=== PATIENT | male | born 1955 | race Caucasian/White ===

== ENCOUNTER 2016-12-29 19:26 | Emergency (ER) | payer OTHER ==
--- NOTE | ~2016-12-29 | CT114 ---
[facility] A Service of [facility] RADIOLOGY TEXT RESULTS PATIENT: SHERIDAN DURÁN LOCATION: [facility] : 59 UNIT #: [id number] AGE: [address]: Wood Bejarano MD SEX: M ORDER DR: [id number] [facility] [address] [place], [place] [address] [id number] E MR#: [id number] Acc #: [id number] NAME: SHERIDAN DURÁN. : 1955 SEX: M STUDY DATE/TIME: 12/29/2016 19:11 UNIT: [facility] ROOM: STUDY DESCRIPTION: CT Soft Tissue Neck W Cont Attending Physician: Wood Bejarano M.D. Ordering Physician: Tereso Garcia M.D. Primary Care Physician: Vikram Barba MEDICAL IMAGING REPORT This report is preliminary unless electronic signature is present EXAM CT scan of the neck with contrast HISTORY Numbness left side of throat and face since this morning. TECHNIQUE Axial 3 mm images were obtained through the neck with IV contrast. The patient was given 100 mL of Isovue-370. Sagittal and coronal reconstructions were generated. This CT exam was performed with one or more of the following radiation dose reduction techniques: automatic exposure control, adjustment of mA and/or kV according to patient size, and iterative reconstruction. FINDINGS The lung apices are clear. The thyroid gland is normal. The submandibular glands and parotid glands are normal. There are no masses. The bones show degenerative changes in the lower cervical spine. IMPRESSION There is some mild degenerative change in the lower cervical spine, otherwise, the study is normal. Dictated by... Laci Salazar M.D. THIS IS AN ELECTRONICALLY VERIFIED REPORT Laci Salazar M.D. at 12/30/2016 4:32 PM FEL/clair TD: 12/30/2016 15:04 [facility] A Service of [facility] RADIOLOGY TEXT RESULTS PATIENT: SHERIDAN DURÁN LOCATION: [facility] : 59 UNIT #: [id number] AGE: [address]: Wood Bejarano MD SEX: M ORDER DR: JOB #: [id number] MEDICAL IMAGING REPORT COPY
--- NOTE | ~2016-12-29 | CT71 ---
[facility] A Service of [facility] RADIOLOGY TEXT RESULTS PATIENT: SHERIDAN DURÁN LOCATION: [facility] : 59 UNIT #: [id number] AGE: [address]: Wood Bejarano MD SEX: M ORDER DR: [id number] [facility] [address] [place], [place] [address] [id number] E MR#: [id number] Acc #: [id number] NAME: SHERIDAN DURÁN. : 1955 SEX: M STUDY DATE/TIME: 12/29/2016 21:07 UNIT: [facility] ROOM: STUDY DESCRIPTION: CT Head Wo Contrast Attending Physician: Wood Bejarano M.D. Ordering Physician: Ed Kevin Garcia M.D. Primary Care Physician: Vikram Barba MEDICAL IMAGING REPORT This report is preliminary unless electronic signature is present EXAM CT scan of the head without contrast. INDICATIONS Numbness in left side of face and neck since this morning. TECHNIQUE This CT exam was performed with one or more of the following radiation dose reduction techniques: automatic exposure control, adjustment of mA and/or kV according to patient size, and iterative reconstruction. FINDINGS Axial noncontrast images were obtained from the skull base to the vertex. Ventricular size and configuration are normal. There is no evidence of acute infarct or hemorrhage. There are no extra-axial fluid collections. No mass lesion or mass effect is seen. There are no skull fractures. IMPRESSION Normal noncontrast head CT. Dictated by... Laci Salazar M.D. THIS IS AN ELECTRONICALLY VERIFIED REPORT Laci Salazar M.D. at 12/30/2016 4:32 PM FEL/pc TD: 12/30/2016 15:04 JOB #: [id number] MEDICAL IMAGING REPORT [facility] A Service [facility] RADIOLOGY TEXT RESULTS PATIENT: SHERIDAN DURÁN LOCATION: [facility] : 59 UNIT #: [id number] AGE: [address]: Wood Bejarano MD SEX: M ORDER DR: COPY
--- NOTE | ~2016-12-29 | EKG ---
PATIENT: SHERIDAN DURÁN UNIT #: [id number] Ventricular Rate: 76 BPM Atrial Rate: 76 BPM P-R Interval: 156 ms QRS Duration: 86 ms Q-T Interval: 380 ms QTC Calculation(Bezet): 427 ms P Lewellen: 45 degrees Calculated R Lewellen: 23 degrees Calculated T Lewellen: 30 degrees Diagnosis Line: Sinus rhythm with marked sinus arrhythmia Diagnosis Line: Otherwise normal ECG Diagnosis Line: No previous ECGs available Diagnosis Line: Confirmed by TIFFANIE PAYNE MD ([id number]) on Diagnosis Line: 01/02/2017 3:57:24 PM INTERPRETING MD: ELMER CAIN
[2016-12-29 19:53] LABS: BASOPHIL# 0.1 X10e3 (0-0.3); EOSINOPHIL# 0.2 X10e3 (0-0.7); EOSINOPHIL% 2.4 % (0.0-7.0); HEMATOCRIT 42.8 % (38.0-50.0); HEMOGLOBIN 14.8 gm/dL (13.0-16.0); LYMPHOCYTE# 2.1 X10e3 (1.0-3.5); LYMPHOCYTE% 26.8 % (17.0-45.0); MEAN CELL VOLUME 88.2 FL (83-96); MEAN CORPUSCULAR HEMOGLOBIN 30.4 PG (28-34); MEAN CORPUSCULAR HGB CONC 34.5 g/dL (30-36); MEAN PLATELET VOLUME 7.9 FL (6.5-11.5); MONOCYTE# 0.6 X10e3 (0-1.0); MONOCYTE% 7.9 % (3.0-12.0); NEUTROPHIL# 4.8 X10e3 (1.5-7.1); NEUTROPHIL% 61.9 % (40-75); PLATELET COUNT 255 X10e3 (140-420); RED BLOOD COUNT 4.86 X10e (3.90-5.60); RED CELL DISTRIBUTION WIDTH 13.5 % (11.0-15.5); WHITE BLOOD COUNT 7.8 X10e3 (4.0-10.5)
[2016-12-29 19:58] LABS: DIFF IND NO
[2016-12-29 19:58] LABS: POC - CKMB 6.4 ng/mL (0.0-7.9); POC - TROPONIN <0.05 ng/mL (<=0.05)
[2016-12-29 20:18] LABS: INFLUENZA A NEG (NEG); INFLUENZA B NEG (NEG)
[2016-12-29 20:23] LABS: ALBUMIN SERUM 4.8 g/dL (3.5-5.0); ALKALINE PHOSPHATASE 62 U/L (32-92); ALT (SGPT) 27 U/L (10-40); AST (SGOT) 28 U/L (10-42); BILIRUBIN, DIRECT 0.2 mg/dL (0.0-0.2); BILIRUBIN,INDIRECT 1.4 mg/dL (0.0-0.9); BILIRUBIN,TOTAL 1.6 mg/dL (0.2-2.0); BLOOD UREA NITROGEN 12 mg/dL (9-23); CALCIUM SERUM 9.4 mg/dL (8.4-10.2); CARBON DIOXIDE 27 mmol/L (22-31); CHLORIDE 106 mmol/L (100-111); CREATININE SERUM 1.2 mg/dL (0.6-1.4); GLOM FILT RATE Estimated ABOVE60 mL/min (>60); GLUCOSE FASTING 86 mg/dL (70-110); PROTEIN TOTAL SERUM 7.4 g/dL (6.0-8.3); SODIUM 141 mmol/L (135-145)
[2016-12-29 22:23] LABS: POC - CKMB 6.2 ng/mL (0.0-7.9); POC - TROPONIN <0.05 ng/mL (<=0.05)
== END 2016-12-29 23:38 | disposition home or self-care (01) ==
LOC: CED 19:26
PROVIDERS: Emergency Medicine
DX: R51 Headache (principal); M54.2 Cervicalgia; I10 Essential (primary) hypertension; Z88.8 Allergy status to other drugs, medicaments and biological substances
CPT/HCPCS: 36415; 70450; 70491; 80048; 80076; 82553; 82947; 84484; 85025; 87651; 87804; 93005; 99284; Q9967

== ENCOUNTER 2017-03-01 20:50 | Emergency (ER) | payer OTHER ==
--- NOTE | ~2017-03-01 | CR2 ---
[facility] A Service of [facility] RADIOLOGY TEXT RESULTS PATIENT: SHERIDAN DURÁN LOCATION: [facility] : 59 UNIT #: [id number] AGE: [address]: Pam Perdomo MD SEX: M ORDER DR: [id number] [facility] [address] [place], [place] [address] [id number] E MR#: [id number] Acc #: [id number] NAME: SHERIDAN DURÁN. : 1955 SEX: M STUDY DATE/TIME: 03/01/2017 20:29 UNIT: [facility] ROOM: STUDY DESCRIPTION: CR Abdomen Acute Series Attending Physician: Pam Perdomo M.D. Ordering Physician: Pam Perdomo M.D. Primary Care Physician: Vikram Barba MEDICAL IMAGING REPORT This report is preliminary unless electronic signature is present EXAM Acute abdomen series 3 views, 03/01/2017 HISTORY Abdominal pain, nausea and constipation for 3 days. FINDINGS Single frontal view of the chest taken at the time of the abdominal examination is within normal limits. AP, supine, and upright examination of the abdomen shows a normal gas and fecal pattern distribution throughout large and small bowel without distended loops in either area. There is no indication of extraluminal air, unusual visceromegaly, or soft tissue density mass. The renal definitions are fairly well demarcated and normal in shape and size. No abnormal intra-abdominal calcifications are present. IMPRESSION Normal acute abdomen series. Dictated by... Jenaro Prado M.D. THIS IS AN ELECTRONICALLY VERIFIED REPORT Jenaro Prado M.D. at 03/02/2017 3:39 PM KRT/linsey TD: 03/02/2017 02:41 JOB #: [id number] MEDICAL IMAGING REPORT [facility] A Service of [facility] RADIOLOGY TEXT RESULTS PATIENT: SHERIDAN DURÁN LOCATION: [facility] : 59 UNIT #: [id number] AGE: [address]: Pam Perdomo MD SEX: M ORDER DR: Page 1 of 1 COPY
[2017-03-01 20:12] LABS: BASOPHIL# 0.1 X10e3 (0-0.3); BASOPHIL% 0.8 % (0-2.5); EOSINOPHIL# 0.1 X10e3 (0-0.7); EOSINOPHIL% 0.6 % (0.0-7.0); HEMATOCRIT 43.5 % (38.0-50.0); HEMOGLOBIN 14.6 gm/dL (13.0-16.0); LYMPHOCYTE# 1.2 X10e3 (1.0-3.5); MEAN CELL VOLUME 89.4 FL (83-96); MEAN CORPUSCULAR HEMOGLOBIN 30.1 PG (28-34); MEAN CORPUSCULAR HGB CONC 33.6 g/dL (30-36); MEAN PLATELET VOLUME 7.5 FL (6.5-11.5); MONOCYTE# 0.7 X10e3 (0-1.0); MONOCYTE% 6.6 % (3.0-12.0); NEUTROPHIL# 8.7 X10e3 (1.5-7.1); PLATELET COUNT 362 X10e3 (140-420); RED BLOOD COUNT 4.87 X10e (3.90-5.60); WHITE BLOOD COUNT 10.8 X10e3 (4.0-10.5)
[2017-03-01 20:13] LABS: DIFF IND NO
[2017-03-01 20:32] LABS: ALBUMIN SERUM 4.4 g/dL (3.5-5.0); BILIRUBIN, DIRECT 0.1 mg/dL (0.0-0.2); BILIRUBIN,TOTAL 1.1 mg/dL (0.2-2.0); BUN/CREATININE RATIO 12.22; CALCIUM SERUM 9.6 mg/dL (8.4-10.2); CREATININE SERUM 0.9 mg/dL (0.6-1.4); GLOM FILT RATE Estimated 93.2 mL/min (>60); PROTEIN TOTAL SERUM 7.8 g/dL (6.0-8.3)
[2017-03-01 22:34] LABS: URINE SOURCE CLEAN CATCH
[2017-03-01 22:37] LABS: URINE APPEARANCE CLEAR; URINE BILIRUBIN NEG (NEG); URINE BLOOD NEG (NEG); URINE COLOR DK YELLOW; URINE GLUCOSE NEG (NEG); URINE KETONE 1+ (NEG); URINE LEUKOCYTE ESTERASE NEG (NEG); URINE NITRATE NEG (NEG); URINE PH 5.5 (5-8); URINE PROTEIN NEG (NEG); URINE SPECIFIC GRAVITY 1.016 (1.003-1.035)
[2017-03-01 22:41] LABS: CULTURE INDICATED? NO
== END 2017-03-02 | disposition home or self-care (01) ==
LOC: CED 20:50
PROVIDERS: Emergency Medicine
DX: K59.00 Constipation, unspecified (principal); Z88.8 Allergy status to other drugs, medicaments and biological substances
CPT/HCPCS: 74022; 80048; 80076; 81003; 82150; 83690; 85025; 99284